=== PATIENT | female | born 1950 | race Caucasian/White ===

== ENCOUNTER 2016-08-17 17:07 | Inpatient (IN) | payer MEDICARE ==
[~2016-08-17] VITALS: Ht 162.6 cm; Wt 107.5 kg
[2016-08-17] MEDS ORDERED: SODIUM CHLORIDE 0.9% 1,000 ML ONE ×3 (17:39→22:27)
[2016-08-17] MEDS ORDERED: SODIUM CHLORIDE 0.9% 1,000 ML IV SCH (21:55)
[2016-08-17] MEDS ORDERED: SALINE FLUSH 10 ML FLUSH PRN (21:55)
[2016-08-17] MEDS ORDERED: GLUCAGON 1 MG VIAL IM PRN (21:55)
[2016-08-17] MEDS ORDERED: ALU/MAG/SIM 30 ML UDC PO PRN (21:55)
[2016-08-17] MEDS ORDERED: ACETAMINOPHEN 325 MG TAB PO PRN (21:55)
[2016-08-17] MEDS ORDERED: BISACODYL EC 5 MG TAB PO PRN (21:55)
[2016-08-17] MEDS ORDERED: DEXTROSE 50% SYRINGE 50 ML IV PRN (21:55)
[2016-08-17] MEDS ORDERED: BISACODYL 10 MG SUPP RECTAL PRN (21:55)
[2016-08-17] MEDS ORDERED: MAG HYDROX 30 ML UDC PO PRN (21:55)
[2016-08-18] VITALS (12 sets, daily range): BP systolic 80–124; RESP 16–18; TEMP 97.4–98.4; Ht 162.6 cm; Wt 107.5 kg
[2016-08-18] MEDS: SODIUM CHLORIDE 0.9% FLUSH BAG 500 ML IV SCH (06:00)
[2016-08-18] MEDS: SALINE FLUSH 10 ML FLUSH SCH ×2 (08:00→20:00)
[2016-08-18] MEDS: [UNRECOGNIZED DRUG - REMARK] XX SCH ×2 (08:19→20:00)
[2016-08-18] MEDS: ENOXAPARIN 30 MG/0.3 ML SYR SUBQ SCH (08:54)
[2016-08-18] MEDS: PANTOPRAZOLE 40 MG TAB PO SCH (08:55)
[2016-08-18] MEDS: LEVEMIR INSULIN SUBQ SCH (08:55)
[2016-08-18] MEDS: AZITHROMYCIN 250 MG TAB PO SCH (08:55)
[2016-08-18] MEDS: GABAPENTIN 300 MG CAP PO SCH ×3 (08:55→21:49)
[2016-08-18] MEDS: MELOXICAM 7.5 MG TAB PO SCH (08:55)
[2016-08-18] MEDS: KCL CR 10 MEQ TAB PO SCH (08:56)
[2016-08-18] MEDS: CITALOPRAM 20 MG TAB PO SCH (08:56)
[2016-08-18] MEDS: LEVOTHYROXINE 0.05 MG TAB PO SCH (08:56)
[2016-08-18] MEDS: ASPIRIN EC 81 MG TAB PO SCH (08:56)
[2016-08-18] MEDS ORDERED: Furosemide 40 MG TAB PO SCH (09:00)
[2016-08-18] MEDS: (Liraglutide (Victoza 3-Pak) 1.8 MG) SUBQ SCH (09:00)
[2016-08-18] MEDS ORDERED: LISINOPRIL 10 MG TAB PO SCH (09:00)
[2016-08-18] MEDS: SODIUM CHLORIDE 0.9% 1,000 ML IV SCH (10:23)
[2016-08-18] MEDS ORDERED: ONDANSETRON 4 MG VIAL IV PUSH PRN (12:35)
[2016-08-18] MEDS ORDERED: SODIUM CHLORIDE 0.9% 1,000 ML IV ONE (12:55)
[2016-08-18] MEDS ORDERED: SCOPOLAMINE PATCH TRANSDERM ONE (12:55)
[2016-08-18] MEDS: SILVER SULF 1% CR 50 GM TOPICAL SCH (14:47)
[2016-08-18] MEDS: Atorvastatin 20 MG TAB PO SCH (21:49)
[2016-08-18] MEDS: MONTELUKAST 10 MG TAB PO SCH (21:49)
[2016-08-19] MEDS: SILVER SULF 1% CR 50 GM TOPICAL SCH ×3 (00:40→20:00)
[2016-08-19] MEDS: SODIUM CHLORIDE 0.9% 1,000 ML IV SCH (04:33)
[2016-08-19] MEDS: SODIUM CHLORIDE 0.9% FLUSH BAG 500 ML IV SCH (06:00)
[2016-08-19 06:10] VITALS: BP_SYST 121; RESP 18; TEMP 97.6
[2016-08-19] MEDS: LEVOTHYROXINE 0.05 MG TAB PO SCH (06:12)
[2016-08-19] MEDS: PANTOPRAZOLE 40 MG TAB PO SCH (06:12)
[2016-08-19] MEDS: DUONEB INH PRN ×5 (07:05→22:36)
[2016-08-19 07:44] VITALS: BP_SYST 115; RESP 16; TEMP 97.4
[2016-08-19] MEDS: [UNRECOGNIZED DRUG - REMARK] XX SCH ×2 (08:00→20:00)
[2016-08-19] MEDS: SALINE FLUSH 10 ML FLUSH SCH ×2 (08:00→20:00)
[2016-08-19] MEDS: (Liraglutide (Victoza 3-Pak) 1.8 MG) SUBQ SCH (08:17)
[2016-08-19] MEDS: MELOXICAM 7.5 MG TAB PO SCH (08:20)
[2016-08-19] MEDS: CITALOPRAM 20 MG TAB PO SCH (08:20)
[2016-08-19] MEDS: AZITHROMYCIN 250 MG TAB PO SCH (08:20)
[2016-08-19] MEDS: LISINOPRIL 10 MG TAB PO SCH (08:20)
[2016-08-19] MEDS: Furosemide 40 MG TAB PO SCH (08:20)
[2016-08-19] MEDS: ASPIRIN EC 81 MG TAB PO SCH (08:21)
[2016-08-19] MEDS: GABAPENTIN 300 MG CAP PO SCH ×3 (08:21→20:00)
[2016-08-19] MEDS: KCL CR 10 MEQ TAB PO SCH (08:21)
[2016-08-19] MEDS: ENOXAPARIN 30 MG/0.3 ML SYR SUBQ SCH (08:22)
[2016-08-19] MEDS: LEVEMIR INSULIN SUBQ SCH (08:35)
[2016-08-19 11:52] VITALS: BP_SYST 120; RESP 16; TEMP 97.9
[2016-08-19 16:28] VITALS: BP_SYST 104; RESP 16; TEMP 97.4
[2016-08-19] MEDS ORDERED: SCOPOLAMINE PATCH TRANSDERM ONE (18:47)
[2016-08-19] MEDS: Atorvastatin 20 MG TAB PO SCH (19:59)
[2016-08-19] MEDS: MONTELUKAST 10 MG TAB PO SCH (19:59)
[2016-08-19 20:21] VITALS: BP_SYST 113; RESP 18; TEMP 98.2
[2016-08-20] VITALS: BP_SYST 117; RESP 18; TEMP 98
[2016-08-20 04:05] VITALS: BP_SYST 114; RESP 18; TEMP 98
[2016-08-20] MEDS: SODIUM CHLORIDE 0.9% FLUSH BAG 500 ML IV SCH (05:04)
[2016-08-20] MEDS: PANTOPRAZOLE 40 MG TAB PO SCH (06:02)
[2016-08-20] MEDS: LEVOTHYROXINE 0.05 MG TAB PO SCH (06:02)
[2016-08-20] MEDS: DUONEB INH PRN ×2 (07:04→10:34)
[2016-08-20] MEDS: SALINE FLUSH 10 ML FLUSH SCH (07:08)
[2016-08-20 07:15] VITALS: BP_SYST 105; RESP 18; TEMP 98
[2016-08-20] MEDS: [UNRECOGNIZED DRUG - REMARK] XX SCH (08:00)
[2016-08-20] MEDS: ENOXAPARIN 30 MG/0.3 ML SYR SUBQ SCH (08:25)
[2016-08-20] MEDS: LEVEMIR INSULIN SUBQ SCH (08:25)
[2016-08-20] MEDS: Furosemide 40 MG TAB PO SCH (08:26)
[2016-08-20] MEDS: SILVER SULF 1% CR 50 GM TOPICAL SCH (08:26)
[2016-08-20] MEDS: KCL CR 10 MEQ TAB PO SCH (08:26)
[2016-08-20] MEDS: LISINOPRIL 10 MG TAB PO SCH (08:26)
[2016-08-20] MEDS: CITALOPRAM 20 MG TAB PO SCH (08:26)
[2016-08-20] MEDS: MELOXICAM 7.5 MG TAB PO SCH (08:26)
[2016-08-20] MEDS: GABAPENTIN 300 MG CAP PO SCH (08:26)
[2016-08-20] MEDS: AZITHROMYCIN 250 MG TAB PO SCH (08:26)
[2016-08-20] MEDS: ASPIRIN EC 81 MG TAB PO SCH (08:27)
[2016-08-20] MEDS: (Liraglutide (Victoza 3-Pak) 1.8 MG) SUBQ SCH (09:00)
[2016-08-20 11:24] VITALS: BP_SYST 113; RESP 18; TEMP 97.8
[2016-08-20 13:38] VITALS: BP_SYST 113; RESP 18; TEMP 97.8
[2016-08-21] MEDS ORDERED: REMOVE SCOPALAMINE PATCH XX SCH (09:00)
[2016-08-21] MEDS ORDERED: SCOPOLAMINE PATCH TRANSDERM SCH (09:00)
[2016-08-21] MEDS ORDERED: REMOVE SCOPALAMINE PATCH XX ONE (12:55)
[2016-08-22] MEDS ORDERED: REMOVE SCOPALAMINE PATCH XX SCH (09:00)
[2016-08-22] MEDS ORDERED: SCOPOLAMINE PATCH TRANSDERM SCH (09:00)
== END 2016-08-20 15:04 | disposition home health service (06) | DRG 683 ==
LOC: CANRESERV → ENRESERVDT → ENRESERVTM → ER 17:07 → EMR 21:55 → ENPENDDIS 21:55 → PCU2 08-18 00:15
PROVIDERS: ADMIT Internal Medicine; ATTEND Internal Medicine
DX: N17.9 Acute kidney failure, unspecified (principal); Z68.41 Body mass index [BMI] 40.0-44.9, adult; I95.9 Hypotension, unspecified; E11.22 Type 2 diabetes mellitus with diabetic chronic kidney disease; E11.42 Type 2 diabetes mellitus with diabetic polyneuropathy; E11.621 Type 2 diabetes mellitus with foot ulcer; N18.3 Chronic kidney disease, stage 3 (moderate); J20.9 Acute bronchitis, unspecified; L97.519 Non-pressure chronic ulcer of other part of right foot with unspecified severity; E66.01 Morbid (severe) obesity due to excess calories; E78.5 Hyperlipidemia, unspecified; M19.90 Unspecified osteoarthritis, unspecified site; E86.9 Volume depletion, unspecified; I25.10 Atherosclerotic heart disease of native coronary artery without angina pectoris; I50.9 Heart failure, unspecified; E89.0 Postprocedural hypothyroidism; Z85.850 Personal history of malignant neoplasm of thyroid; Z96.653 Presence of artificial knee joint, bilateral; T50.2X5A Adverse effect of carbonic-anhydrase inhibitors, benzothiadiazides and other diuretics, initial encounter; Y92.009 Unspecified place in unspecified non-institutional (private) residence as the place of occurrence of the external cause
CPT/HCPCS: 36415; 36600; 71010; 80048; 80053; 82553; 82947; 83605; 83880; 84484; 85025; 86141; 87040; 87071; 93005; 94640; 96360; 99223; 99232; 99238